=== PATIENT | female | born 1980 | race Caucasian/White ===

== ENCOUNTER 2022-06-29 08:42 | Emergency (ER) | payer OTHER ==
[~2022-06-29 08:42] MED LIST: ARMOUR THYROID180 MG PO; MIDOL CAPLET1 EAC1 PO; MUCINEX 600MG600 MG PO; NALTREXONE PO; SINGULAIR10 MG PO; ZYRTEC10 M3 PO
[2022-06-29] MEDS ORDERED: NORCO 5-325 TA1 EACH PO (11:15)
[2022-06-29] MEDS ORDERED: MUCINEX D ER 61 EACH PO (11:15)
== END 2022-06-29 11:38 | disposition home or self-care (01) ==
LOC: FER 08:42
DX: S02.2XXA Fracture of nasal bones, initial encounter for closed fracture (principal); W54.1XXA Struck by dog, initial encounter; Y92.830 Public park as the place of occurrence of the external cause; Z28.310 Unvaccinated for COVID-19
CPT/HCPCS: 70450; 70486